=== PATIENT | female | born 1955 | race Caucasian/White ===

== ENCOUNTER → 2019-02-11 | Outpatient (CLI) | payer OTHER ==
[~2019-02-11] MED LIST: ALBUTEROL17 GM; ALDACTAZIDE 251 EAC1; AMLODIPINE BESY10 MG PO; CARVEDILOL12.5 MG PO; CLONIDINE HCL0.2 MG PO; DIOVAN160 MG PO; HYDRALAZINE HCL25 MG PO; NOVOLOG 70100 UNITS/; PLAVIX75 MG PO; PRAVASTATIN SOD40 MG PO; Z.0.ADVAIR 250-501 E; Z.0.AMARYL4 MG PO; Z.0.COREG12.5 MG PO; Z.0.LANTUS100 UNIT/1; Z.0.LASIX20 MG PO; Z.0.LISINOPRIL40 MG; Z.0.NEURONTIN300 MG
--- NOTE | 2019-02-11 16:03 | Diagnostic Imaging Report ---
EXAMINATION: CHEST XRAY LINE PLACEMENT INDICATION: Line placement COMPARISON: None FINDINGS: LINES/TUBES:Right PICC line terminates in the superior vena cava. LUNGS:The lungs are well-inflated. No focal consolidation or pulmonary edema. PLEURA:No pleural effusion or pneumothorax. MEDIASTINUM:The cardiomediastinal silhouette appears normal in size and shape. BONES/SOFT TISSUES:No acute osseous injury. ABDOMEN:No free air under the diaphragm. IMPRESSION: Right PICC line terminates in the superior vena cava. Signed by: Dylon Petit MD on 02/11/2019 3:59 PM
== END ==
LOC: DX 14:39
PROVIDERS: ATTEND Internal Medicine Infectious Disease
DX: M86.071 Acute hematogenous osteomyelitis, right ankle and foot (principal)
CPT/HCPCS: 36569; 71045

== ENCOUNTER → 2019-05-26 | Day surgery (SDC) | payer OTHER ==
[2019-05-20 10:58] LABS: BASOPHILS # (AUTO) 0.1 (0.0-0.1); BASOPHILS % 0.8 % (0.0-1.0); EOSINOPHILS # (AUTO) 0.4 (0.0-0.4); EOSINOPHILS % 4.4 % (0.0-6.0); HEMATOCRIT 44.3 % (34.2-44.1); HEMOGLOBIN 14.1 g/dL (12.0-16.0); LYMPHOCYTES # (AUTO) 2.1 (1.0-3.2); LYMPHOCYTES % 23.8 % (18.0-39.1); MEAN CORPUSCULAR HGB CONC 31.8 g/dL (31-35); MEAN CORPUSCULAR VOLUME 91.2 fL (81-99); MONOCYTES # (AUTO) 0.7 (0.2-0.8); MONOCYTES % 7.2 % (4.4-11.3); NEUTROPHILS # (AUTO) 5.7 (2.1-6.9); NEUTROPHILS % 63.4 % (38.7-80.0); PLATELET COUNT 213 x10e3/uL (140-360); RED BLOOD COUNT 4.86 x10e6/uL (3.6-5.1); RED CELL DISTRIBUTION WIDTH 15.2 % (11.7-14.4)
[2019-05-20 11:15] LABS: ALBUMIN 3.8 g/dL (3.5-5.0); ANION GAP 15.6 mmol/L (8-16); CALCIUM 9.2 mg/dL (8.4-10.2); CREATININE, SERUM 1.9 mg/dL (0.57-1.11); POTASSIUM 4.6 mmol/L (3.5-5.1)
--- NOTE | 2019-05-20 14:43 | NUR ---
Dr. Knott notified of BUN 50, creatinine 1.90, and eGFR 27. No new orders at this time.
[~2019-05-26] VITALS: Ht 167.6 cm; Wt 127.0 kg
[2019-05-26] VITALS (13 sets, daily range): BP systolic 111–160; BP diastolic 66–86
[~2019-05-26] MED LIST changes: +ALPRAZOLAM 0.5 MG TAB ONE; +ASPIR 8181 MG PO; +ASPIRIN 325 MG TAB ONE; +BIVALRIUDIN 250 MG/VIAL VIAL IV ONE; +CIPRO500 MG PO; +DIPHENHYDRAMINE HCL 25 MG CAP ONE; +FENTANYL CITRATE/PF 100MCG/2 ML INJ ONE; +FLUCONAZOLE100 MG PO; +HEPARIN SOD/SOD CHLORIDE 2,000 ML ONE; +IOPAMIDOL 300MG/ML 100 ML INFUS..BTL IV ONE; +LEVEMIR100 UNIT/1 SC; +LIDOCAINE HCL 2% LOCAL 20 ML VIAL ONE; +LISINOPRIL10 MG PO; +MIDAZOLAM HCL 2 MG/2 ML VIAL ONE; +NOVOLOG100 UNITS1 SC; +PRASUGREL 10 MG TAB ONE; +SODIUM CHLORIDE 0.9% 1000ML 1,000 ML ONE; +SODIUM CHLORIDE 0.9% 50ML 50 ML ONE; +VERAPAMIL HCL 2.5 MG/ML 2 ML VIAL ONE
--- OUTSIDE RECORDS SUMMARY | 2019-05-26 11:47 | XMS REPORT ---
Author Author [facility] Address Unknown Phone Unavailable Care Team Providers Care Instrument And Electrical Technician Name Role Phone ZORA CORRALES Unavailable Unavailable Problems This patient has no known problems. Allergies, Adverse Reactions, Alerts This patient has no known allergies or adverse reactions. Medications This patient has no known medications. Results Test Description Test Time Test Comments Text Results Atomic Results Result Comments CHEST XRAY LINE PLACEMENT 2019-02-11 15:58:00 [place] [address] Patient Name: EDIL PRIDE MR #: [id number] : 1955 Age/Sex: 63/F Req #: [id number] Adm Physician: Ordered by: ZORA CORRALES MD Report #: [id number] Location: DX Room/Bed: Procedure: [id number] DX/CHEST XRAY LINE PLACEMENT Exam Date: Exam Time: REPORT STATUS: Signed EXAMINATION: CHEST XRAY LINE PLACEMENT INDICATION: L ine placement COMPARISON: None FINDINGS: LINES/TUBES:Right PICC line terminates in the superior vena cava. LUNGS:The lungs are well- inflated. No focal consolidation or pulmonary edema. PLEURA:No pleural effusion or pneumothorax. MEDIASTINUM:The cardiomediastinal silhouette appears normal in size and shape. BONES/SOFT TISSUES:No acute osseous injury. ABDOMEN:No free air under the diaphragm. IMPRESSION: Right PICC line terminates in the superior vena cava. Signed by: Jaylin Petit MD on 02/11/2019 3:59 PM Dictated By: JAYLIN EPTIT MD [id number] Transcribed By: CHAD on 02/11/19 3339 COPY TO: ZORA CORRALES MD
--- NOTE | 2019-05-26 16:30 | NUR ---
5010p Received pt to room #9, Identifier x2. Bedside report received from [address] L[address]. Alert oriented and appropriate, PERRLA, respirations even and unlabored to room air. Pulses x4 extremities equal and strong. Pedal pulses PT/DP X4.Cap fill brisk < 3 sec. No periperal fix and LHc Lad fix x1 stent.ok to dc at 9pm. Skin warm and dry integrity appears. IV 20g to left hand. Presents healthy w/o s/s of infiltration or complaint. Abdomen soft and supple. pt offered toileting, denies need to urinate or defecate. No personal affects with patient. Family at bedside. Currently w/o complaint of pain or need. ds/milton
--- NOTE | 2019-05-26 18:20 | NUR ---
1820p RADIAL Compression removal: Initial Cuff volume -13cc 1820p -3 cc Removed No hematoma/bleeding noted with normal neurovascular function. 1830 -5cc Removed No hematoma/ bleeding noted with normal neurovascular function. 1845 -5cc Removed No hematoma/bleeding noted with normal neurovascular function. Air removal completed. Stasis achieved sterile 2x2,Tegaderm, Coban dressing No hematoma, bleeding noted with normal neurovascular function. Wrist splint in place. Pt instructed on POC. Ds/Rn
--- NOTE | 2019-05-26 20:58 | NUR ---
Pt meets DC criteria.Rt Tr band site assessed for s/s of complication and presence of hematoma. Sklin warm, dry, no discolor, and pulses present. IV removed from left hand. Distal tip appears intact. VS WNL. Pt denies pain, sob, or need at this time. Family at bedside. Review of discharge paperwork and follow up instructions. verbalized understanding. Pt to wheelchair and transported to front of hospital. Transferred to private vehicle under own strength w/o incident with DC paperwork in hand. ds/rn
--- NOTE | 2019-05-26 22:19 | Operative Report ---
DATE OF PROCEDURE: 05/26/2019 SURGEON: Kvng Knott MD CARDIAC CLOTH SHEARER PROCEDURE. INDICATIONS: 1. Coronary artery disease, abnormal stress test, unstable angina. 2. Peripheral arterial disease with claudication ulceration. 3. Deployment of right wrist TR band. 4. Ultrasound guided access into the right radial artery including image storage permanently. 5. 65 minutes of conscious sedation, which was monitored physiologically and hemodynamically by me as well as the finishing lab technician nurse. COMPLICATIONS: None. RECOMMENDATIONS: Dual antiplatelet therapy for at least 6 months, staged intervention for peripheral arterial disease as indicated. DESCRIPTION OF PROCEDURE: Access obtained in the right radial artery using ultrasound guidance. A 5-Latvian sheath was placed. Coronary angiography demonstrated patent left main, left anterior descending artery approximately mild disease, mid left anterior descending artery 70% stenosis. Right coronary artery diffuse 20% stenosis. LV end-diastolic pressure of 14, no gradient across the aortic valve pullback. Abdominal aortogram demonstrated widely patent abdominal aorta and iliacs bilaterally. The catheter was advanced to bilateral common femoral artery 50% stenosis in the left femoral artery, bilateral anterior tibial artery is occluded two-vessel runoff. A decision was made to intervene on the left anterior descending artery. The patient received intravenous Angiomax and oral Effient and aspirin for anticoagulation. The left main was cannulated using an XB3.5, 6-Latvian guiding catheter. Short whisper wire was advanced across the lesion. Primary stent 2.75 x 16 mm synergy stent deployed at 22 atmospheres. Excellent end result, less than 10% residual stenosis TRENT-3 flow. No complications. Wire and guide sheath removed. TR band applied. The patient discharged home. MD KAREN Chavez/MODL /[id number]
== END | disposition home or self-care (01) ==
LOC: CATH LAB 11:36
PROVIDERS: ATTEND Internal Medicine Interventional Cardiology
DX: I25.110 Atherosclerotic heart disease of native coronary artery with unstable angina pectoris (principal); R94.39 Abnormal result of other cardiovascular function study; I70.249 Atherosclerosis of native arteries of left leg with ulceration of unspecified site; I70.239 Atherosclerosis of native arteries of right leg with ulceration of unspecified site; I10 Essential (primary) hypertension; E11.9 Type 2 diabetes mellitus without complications; Z88.1 Allergy status to other antibiotic agents; Z01.812 Encounter for preprocedural laboratory examination; Z79.84 Long term (current) use of oral hypoglycemic drugs; Z79.02 Long term (current) use of antithrombotics/antiplatelets; Z79.82 Long term (current) use of aspirin; Z79.4 Long term (current) use of insulin; Z68.42 Body mass index [BMI] 45.0-49.9, adult
CPT/HCPCS: 36247; 36252; 36415; 76937; 80053; 85025; 92928; 93458; C1769 ×4; C1874; C1887 ×2; J0583; J2001; J2250; J3010; J7030; Q9967; 75625; 75716; 99152; 99153

== ENCOUNTER → 2019-07-17 | Outpatient (CLI) | payer OTHER ==
[~2019-07-17] MED LIST changes: -ALPRAZOLAM 0.5 MG TAB ONE; -ASPIRIN 325 MG TAB ONE; -BIVALRIUDIN 250 MG/VIAL VIAL IV ONE; -DIPHENHYDRAMINE HCL 25 MG CAP ONE; -FENTANYL CITRATE/PF 100MCG/2 ML INJ ONE; -HEPARIN SOD/SOD CHLORIDE 2,000 ML ONE; -IOPAMIDOL 300MG/ML 100 ML INFUS..BTL IV ONE; -LIDOCAINE HCL 2% LOCAL 20 ML VIAL ONE; -MIDAZOLAM HCL 2 MG/2 ML VIAL ONE; -PRASUGREL 10 MG TAB ONE; -SODIUM CHLORIDE 0.9% 1000ML 1,000 ML ONE; -SODIUM CHLORIDE 0.9% 50ML 50 ML ONE; -VERAPAMIL HCL 2.5 MG/ML 2 ML VIAL ONE
--- NOTE | 2019-07-17 16:48 | Diagnostic Imaging Report ---
MRI of the right foot without contrast. History: Foot pain. Osteomyelitis. Diabetic ulcer at the fifth toe. Infection. Decreased range of motion. Technique: Multiplanar multisequence MRI of the foot without contrast Comparison: 01/17/2011 Findings: Abnormal soft tissue edema with skin thickening and apparent skin ulceration at the dorsal aspect of the fifth toe. There is underlying bone marrow edema in the fifth toe as seen on sagittal image 27 and 28 as well as series 5 image 12 through 15. This is worrisome for osteomyelitis. No adjacent well-formed drainable fluid collection/abscess is seen. Scattered degenerative change about the remaining visualized osseous structures. No acute fracture, dislocation or evidence of avascular necrosis. No ligamentous or tendon tear. Diffuse muscle atrophy. The visualized neurovascular bundles are intact. Soft tissue edema most pronounced dorsally best seen on series 2 image 3 could be due to cellulitis. Impression: Abnormal soft tissue edema with skin thickening and apparent skin ulceration at the dorsal aspect of the fifth toe. There is underlying bone marrow edema in the fifth toe worrisome for osteomyelitis. No adjacent well-formed drainable fluid collection/abscess is seen. Soft tissue edema most pronounced dorsally about the foot could be due to cellulitis. Signed by: Dr. Christian Lan M.D. on 07/17/2019 4:45 PM
== END ==
LOC: MRI 11:37
PROVIDERS: ATTEND Podiatrist Foot & Ankle Surgery
DX: M86.071 Acute hematogenous osteomyelitis, right ankle and foot (principal)

== ENCOUNTER → 2019-08-10 | Outpatient (CLI) | payer OTHER ==
[2019-08-10 15:03] LABS: BASOPHILS # (AUTO) 0.1 (0.0-0.1); BASOPHILS % 0.4 % (0.0-1.0); EOSINOPHILS # (AUTO) 0.7 (0.0-0.4); EOSINOPHILS % 5.8 % (0.0-6.0); HEMATOCRIT 40.7 % (34.2-44.1); HEMOGLOBIN 13.2 g/dL (12.0-16.0); LYMPHOCYTES # (AUTO) 2.1 (1.0-3.2); MEAN CORPUSCULAR HEMOGLOBIN 28.8 pg (28-32); MEAN CORPUSCULAR HGB CONC 32.4 g/dL (31-35); MEAN CORPUSCULAR VOLUME 88.7 fL (81-99); MONOCYTES # (AUTO) 0.7 (0.2-0.8); MONOCYTES % 5.8 % (4.4-11.3); NEUTROPHILS # (AUTO) 7.7 (2.1-6.9); NEUTROPHILS % 68.6 % (38.7-80.0); PLATELET COUNT 207 x10e3/uL (140-360); RED BLOOD COUNT 4.59 x10e6/uL (3.6-5.1); RED CELL DISTRIBUTION WIDTH 14.5 % (11.7-14.4)
== END ==
LOC: DX 13:36 → EDSTATUS 08-13 06:30
PROVIDERS: ATTEND Podiatrist Foot & Ankle Surgery
DX: Z01.818 Encounter for other preprocedural examination (principal); M86.071 Acute hematogenous osteomyelitis, right ankle and foot; Z11.59 Encounter for screening for other viral diseases
CPT/HCPCS: 36415; 85025; 87635; 93005

== ENCOUNTER → 2020-01-06 | Day surgery (SDC) | payer OTHER ==
--- NOTE | 2020-01-01 10:30 | Diagnostic Imaging Report ---
EXAMINATION: CHEST 2 VIEWS INDICATION: Pre-operative COMPARISON: Chest radiograph 02/11/2019 FINDINGS: LINES/TUBES:None LUNGS:The lungs are well-inflated. No focal consolidation or pulmonary edema. PLEURA:No pleural effusion or pneumothorax. MEDIASTINUM:The cardiomediastinal silhouette appears normal in size and shape. BONES/SOFT TISSUES:No acute osseous injury. ABDOMEN:No free air under the diaphragm. IMPRESSION: No focal pneumonia or pulmonary edema. Signed by: Dylon Petit MD on 01/01/2020 10:26 AM
[2020-01-01 10:32] LABS: BASOPHILS # (AUTO) 0.1 (0.0-0.1); BASOPHILS % 0.5 % (0.0-1.0); EOSINOPHILS # (AUTO) 0.5 (0.0-0.4); EOSINOPHILS % 5.8 % (0.0-6.0); HEMATOCRIT 44.1 % (34.2-44.1); HEMOGLOBIN 14.1 g/dL (12.0-16.0); LYMPHOCYTES # (AUTO) 2.3 (1.0-3.2); MEAN CORPUSCULAR HEMOGLOBIN 29.2 pg (28-32); MEAN CORPUSCULAR VOLUME 91.3 fL (81-99); MONOCYTES # (AUTO) 0.5 (0.2-0.8); MONOCYTES % 5.3 % (4.4-11.3); NEUTROPHILS # (AUTO) 5.9 (2.1-6.9); PLATELET COUNT 205 x10e3/uL (140-360); RED BLOOD COUNT 4.83 x10e6/uL (3.6-5.1); RED CELL DISTRIBUTION WIDTH 15.5 % (11.7-14.4)
[2020-01-01 10:53] LABS: ANION GAP 13.2 mmol/L (8-16); CALCIUM 8.6 mg/dL (8.4-10.2); CREATININE, SERUM 1.88 mg/dL (0.57-1.11); POTASSIUM 4.2 mmol/L (3.5-5.1)
[~2020-01-06] MED LIST changes: +ATORVASTATIN CA20 MG PO; +BUPIVACAINE HCL 0.5% INJ 30 ML VIAL INJ ONE; +CEFAZOLIN SOD 1 GM/NS 50ML 50 ML IV ONE; +CLARITIN-D 241 EACH PO; +COLCRYS0.6 MG PO; +DEXAMETHASONE SOD PHOS INJ 4 MG/ML VIAL ONE; +DOXYCYCLINE HY100 MG PO; +FENTANYL CITRATE/PF 100MCG/2 ML INJ ONE; +LABETALOL HCL 5 MG/ML 20ML VIAL ONE; +MIDAZOLAM HCL 2 MG/2 ML VIAL ONE
[2020-01-06 08:30] VITALS: BP 142/86
--- NOTE | 2020-01-06 09:28 | Operative Report ---
DATE OF PROCEDURE: 01/06/2020 SURGEON: Melissa Marr DPM PREOPERATIVE DIAGNOSIS: Right 5th digit osteomyelitis. POSTOPERATIVE DIAGNOSIS: Right 5th digit osteomyelitis. PLANNED PROCEDURE: Right partial 5th ray amputation. WHEEL PRESS CLERK: Melissa Marr DPM. ANESTHESIA: General with a postoperative block consisting of 10 mL of 0.5% Marcaine plain. HEMOSTASIS: Esmarch tourniquet applied for approximately 15 minutes. MATERIALS: 4-0 nylon. ESTIMATED BLOOD LOSS: Less than 10 mL. PATHOLOGY: Right 5th digit sent for gross specimen. PROCEDURE NOTE: The patient was seen in the preoperative waiting room. The correct procedure and site were identified. The patient was brought to the operating room and placed on the operative table in a supine position. IV sedation was initiated this time followed by a ring block to the right 5th metatarsal. The right foot, ankle and leg was scrubbed, prepped, and draped in the usual aseptic manner. The right foot, ankle and leg was exsanguinated with an Esmarch bandage and an Esmarch tourniquet was applied for approximately 20 minutes. Attention was directed to the distal aspect of the patient's right foot, where a deep probing ulceration was noted to the proximal interphalangeal joint of the right 5th digit. The decision made to proceed with a partial 5th ray amputation. Utilizing a #15 blade, a linear incision was made over the distal aspect of the right 5th metatarsal with two converging semi-elliptical incisions over the metatarsophalangeal joint. The digit was grasped with a towel clamp and disarticulated utilizing a #15 blade at the level of the metatarsophalangeal joint. The wound was then debrided of all necrotic and devitalized tissue. Next, utilizing a sagittal saw, the 5th metatarsal head resection was performed and was sent for gross specimen. The remainder of the wound was debrided again of all necrotic and devitalized tissue. The wound was copiously irrigated with sterile saline. Next, the wound was prepped for closure by removing all dog-ears and debulking fat. The incision site was reapproximated utilizing simple interrupted sutures with 4-0 nylon. The incision site was then dressed with Adaptic, 4x4s, Kerlix, Carlos wrap, and a postop shoe. The patient tolerated the procedure and anesthesia well. The patient was transferred to the postoperative recovery room with vital signs stable and vascular status intact. The patient is monitored there for a short period time before being sent home with the following written and oral instructions. 1. Keep the dressing clean, dry, intact. 2. The patient is to remain partial weightbearing to the right foot and to avoid excessive ambulation until being seen in the office. 3. The patient was given office number should contact us if any problems arise. Dictated by Melissa Marr DPM S ROBER Dc (Charley)/MODL /[id number]
== END | disposition home or self-care (01) ==
LOC: OR 05:05
PROVIDERS: ATTEND Podiatrist Foot & Ankle Surgery
DX: M86.571 Other chronic hematogenous osteomyelitis, right ankle and foot (principal); E11.9 Type 2 diabetes mellitus without complications; I10 Essential (primary) hypertension; E11.22 Type 2 diabetes mellitus with diabetic chronic kidney disease; I13.0 Hypertensive heart and chronic kidney disease with heart failure and stage 1 through stage 4 chronic kidney disease, or unspecified chronic kidney disease; N18.9 Chronic kidney disease, unspecified; I50.9 Heart failure, unspecified; Z88.2 Allergy status to sulfonamides; Z88.1 Allergy status to other antibiotic agents; Z91.040 Latex allergy status; Z01.810 Encounter for preprocedural cardiovascular examination; Z01.812 Encounter for preprocedural laboratory examination; Z01.818 Encounter for other preprocedural examination; Z11.59 Encounter for screening for other viral diseases; Z98.61 Coronary angioplasty status; Z79.84 Long term (current) use of oral hypoglycemic drugs; Z79.4 Long term (current) use of insulin; Z79.02 Long term (current) use of antithrombotics/antiplatelets
CPT/HCPCS: 28810; 36415 ×2; 71046; 80048; 82948; 85025; 88305; 88311; 93005; J0690; J2250; J3010; J3490; U0002; 88302; J1100

== ENCOUNTER 2020-02-21 12:31 | Inpatient (IN) | payer OTHER ==
[2020-02-20 20:00] VITALS: BP 114/52
[~2020-02-21] VITALS: Ht 162.6 cm; Wt 127.0 kg
[~2020-02-21 12:31] MED LIST changes: -BUPIVACAINE HCL 0.5% INJ 30 ML VIAL INJ ONE; -CEFAZOLIN SOD 1 GM/NS 50ML 50 ML IV ONE; -DEXAMETHASONE SOD PHOS INJ 4 MG/ML VIAL ONE; -FENTANYL CITRATE/PF 100MCG/2 ML INJ ONE; -LABETALOL HCL 5 MG/ML 20ML VIAL ONE; -MIDAZOLAM HCL 2 MG/2 ML VIAL ONE
--- OUTSIDE RECORDS SUMMARY | 2020-02-21 12:38 | XMS REPORT | Clinical Summary ---
Author Author [facility] Address Unknown Phone Unavailable Care Team Providers Care Mobile Pet Groomer Name Role Phone Leon Massey PA-C, Abhilash Nolen PCP [phone] Allergies No Known Active Allergies Medications End Date Status Medication Sig Dispensed Refills Start Date Active chlorhexidine (HIBICLENS) Full body 600 mL 0 4 % external liquid shower to 7 decrease MRSA on body Active Problems Not on file Surgical History Surgery Date Site/Laterality Comments STENT Femoral BRAIN SURGERY Medical History Medical History Date Comments Hypertension Diabetes mellitus (HCC) CHF (congestive heart failure) (HCC) Blindness left eye Social History Date Tobacco Use Types Packs/Day Years Used Never Smoker Smokeless Tobacco: Never Used Drinks/Week oz/Week Comments Alcohol Use No Sex Assigned at Date Recorded Not on file Last Filed Vital Signs Not on file Plan of Treatment Not on file Results Not on fileafter 02/20/2019 Insurance Type Payer Benefit Subscriber ID Effective Phone Address Plan / Dates Group HMO/PPO [facility] [id number] 2016-P THCARE resent CHOICE/CHO ICE [phone] Advance Directives For more information, please contact: [phone] Patient Echo Technician Explanation Type Date Recorded Advance Directives, 09/09/2016 6:40 PM Living Will and Medical Power of Director Process Improvement
--- OUTSIDE RECORDS SUMMARY | 2020-02-21 12:38 | XMS REPORT | Continuity of Care Document ---
Author Author [facility] t Organization [facility] Address [address] [place] [address] Dr. Allen [address] [place] [address] Phone Unavailable Care Team Providers Care Mirror Fabrication Supervisor Name Role Phone Leon Massey PA-C, Callum Hung PCP [phone] Mani JO Attphys Unavailable BOYDAlistair MOHAMMED Attphys Unavailable SHEBIZORA Mcgregor Attphys Unavailable Problems This patient has no known problems. Allergies, Adverse Reactions, Alerts This patient has no known allergies or adverse reactions. Social History Social Habit Start Date Stop Date Quantity Comments Source Sex Assigned At [facility] [employer] Tobacco use and exposure 2016-09-09 00:00:00 2016-09-09 00:00:00 Vianneymalena kaminski used [employer] Alcohol intake 2016-09-09 00:00:00 2016-09-09 00:00:00 Current non-drinker of alcohol (finding) [employer] Smoking Status Start Date Stop Date Source Never smoker [place] [facility] Medications Ordered Medication Name Filled Medication Name Start Date Stop Da te Current Medication? Ordering Clinician Indication Dosage Frequency Signature (SIG) Comments Components Source chlorhexidine (HIBICLENS) 4 % external liquid 2016-09-09 00:00:0 0 Yes Full body shower to decrease MRSA on body Kayden Wood Procedures This patient has no known procedures. Results Test Description Test Time Test Comments Results Result Comments Source CHEST 2 VIEWS 2020-01-01 10:26:00 [facility] [address] [place], [place] [address] Patient Name: EDIL ZURITA MR #: [id number] : 1955 Age/Sex: 64/F Req #: [id number] Adm Physician: Ordered by: Teo JO DPM Report #: [id number] Location: OR Room/Bed: Procedure: [id number] DX/CHEST 2 VIEWS Exam Date: 01/01/20 Exam Time: 1007 REPORT STATUS: Signed EXAMINATION: CHEST 2 VIEWS INDICATION: Pre-operative COMPARISON: Chest radiograph 02/11/2019 FINDINGS: LINES/TUBES:None LUNGS:The lungs are well-inflated. No focal consolidation or pulmonary edema. PLEURA:No pleural effusion or pneu mothorax. MEDIASTINUM:The cardiomediastinal silhouette appears normal in size and shape. BONES/SOFT TISSUES:No acute osseous injury. ABDOMEN:No free air under the diaphragm. IMPRESSION: No focal pneumonia or pulmonary edema. Signed by: Jaylin Farnsworth MD on 01/01/2020 10:26 AM Dictated By: JAYLIN FARNSWORTH MD 1026 Transcribed By: CHAD on 01/01/20 1026 COPY TO: Teo JO DPM MRI FOOT RIGHT WO 2019-07-17 16:40:00 [place] [address] Patient Name: EDIL ZURITA MR #: [id number] : 1955 Age/Sex: 63/F Req #: [id number] Adm Physician: Ordered by: RUTH NIX DPM Report #: [id number] Location: MRI Room/Bed: Procedure: [id number] MRI/MRI FOOT RIGHT WO Exam Date: Exam Time: REPORT STATUS: Signed MRI of the right foot without contrast. History: Foot pain. Osteomyelitis. Diabetic ulcer at the fifth toe. Infection. Decreased range of motion. Technique: Multiplanar multisequence MRI of the foot without contrast Comparison: 01/17/2011 Findings: Abnormal soft tissue edema with skin thickening and apparent skin ulceration at the dorsal aspect of the fifth toe. There is underlying bone marrow edema in the fifth toe as seen on sagittal image 27 and 28 as well as series 5 image 12 through 15. This is worrisome for osteomyelitis. No adjacent well-formed drainable fluid collection/abscess is seen. Scattered degenerative change about the remaining visualized osseous structures. No acute fracture, dislocation or evidence of avascular necrosis. No ligamentous or tendon tear. Diffuse muscle atrophy. The visualized neurovascular bundles are intact. Soft tissue edema most pronounced dorsally best seen on series 2 image 3 could be due to cellulitis. Impression: Abnormal soft tissue edema with skin thickening and apparent skin ulceration at the dorsal aspect of the fifth toe. There is underlying bone marrow edema in the fifth toe worrisome for osteomyelitis. No adjacent well-formed drainable fluid collection/abscess is seen. Soft tissue edema most pronounced dorsally about the foot could be due to cellulitis. Signed by: Dr. Jimmie Hernandez M.D. on 07/17/2019 4:45 PM Dictated By: JIMMIE HERNANDEZ MD, MD Transcribed By: CHAD on 07/17/191644 COPY TO: RUTH NIX DPM CHEST XRAY LINE PLACEMENT 2019-02-11 15:58:00 [place] [address] Patient Name: EDIL ZURITA MR #: [id number] : 1955 Age/Sex: 63/F Req #: [id number] [facility] Physician: Ordered by: ZORA CORRALES MD Report #: [id number] Location: DX Room/Bed: Procedure: [id number] DX/CHEST XRAY LINE PLACEMENT Exam Date: Exam Time: REPORT STATUS: Signed EXAMINATION: CHEST XRAY LINE PLACEMENT INDICATION: Line placement COMPARISON: None FINDINGS: LINES/TUBES:Right PICC line terminates in the superior vena cava. LUNGS:The lungs are well-inflated. No focal consolidation or pulmonary edema. PLEURA:No pleural effusion or pneumothorax. MEDIASTINUM:The cardiomediastinal silhouette appears normal in size and shape. BONES/SOFT TISSUES:No acute osseous injury. ABDOMEN:No free air under the diaphragm. IMPRESSION: Right PICC line terminates in the superior vena cava. Signed by: Jaylin Farnsworth MD on 02/11/2019 3:59 PM Dictated By: JAYLIN FARNSWORTH MD 58 Transcribed By: CHAD on 02/11/191558 COPY TO: ZORA CORRALES MD
[2020-02-21] MEDS ORDERED: HYDROCODONE/APAP 7.5MG-325MG 1 EA TAB PO NR (13:15)
[2020-02-21 14:06] LABS: BASOPHILS # (AUTO) 0.1 (0.0-0.1); BASOPHILS % 0.4 % (0.0-1.0); EOSINOPHILS # (AUTO) 0.1 (0.0-0.4); EOSINOPHILS % 0.5 % (0.0-6.0); HEMOGLOBIN 13.4 g/dL (12.0-16.0); LYMPHOCYTES # (AUTO) 1.4 (1.0-3.2); LYMPHOCYTES % 7.1 % (18.0-39.1); MEAN CORPUSCULAR HGB CONC 31.2 g/dL (31-35); MEAN CORPUSCULAR VOLUME 93.1 fL (81-99); MONOCYTES # (AUTO) 0.7 (0.2-0.8); MONOCYTES % 3.7 % (4.4-11.3); NEUTROPHILS # (AUTO) 16.7 (2.1-6.9); NEUTROPHILS % 87.7 % (38.7-80.0); PLATELET COUNT 361 x10e3/uL (140-360); RED BLOOD COUNT 4.62 x10e6/uL (3.6-5.1); RED CELL DISTRIBUTION WIDTH 15.1 % (11.7-14.4)
--- NOTE | 2020-02-21 14:16 | Diagnostic Imaging Report ---
X-ray : 3 views of the left foot. HISTORY: Pain. COMPARISON: None available. FINDINGS: Bone/joints: The bones are diffusely demineralized. No acute fracture or dislocation identified. Os peroneum. Enthesopathic changes at the insertion of the Achilles tendon on the calcaneus. Soft tissues: No focal abnormality. IMPRESSION: No acute radiographic abnormality. Signed by: Thuan De Guzman MD on 02/21/2020 2:12 PM
[2020-02-21 14:20] LABS: INR 1.12
[2020-02-21 14:21] LABS: PARTIAL THROMBOPLASTIN TIME 37.1 seconds (23.8-35.5)
[2020-02-21 14:30] LABS: ALBUMIN 3.2 g/dL (3.5-5.0); ALBUMIN/GLOBULIN RATIO 0.7 (0.8-2.0); ANION GAP 18.9 mmol/L (8-16); CALCIUM 9.4 mg/dL (8.4-10.2); CREATININE, SERUM 2.22 mg/dL (0.57-1.11); MAGNESIUM 2.3 MG/DL (1.3-2.1); POTASSIUM 4.9 mmol/L (3.5-5.1)
[2020-02-21 14:37] LABS: CREATINE KINASE MB 0.9 ng/mL (0-5.0)
[2020-02-21] MEDS ORDERED: CLINDAMYCIN PHOS 900MG/ 50ML 50 ML IV ONE (15:30)
[2020-02-21] MEDS ORDERED: PIPERACILLIN/TAZO 2.25 GM 50 ML IV ONE (15:30)
[2020-02-21] MEDS ORDERED: DEXTROSE 50% SYRINGE 50 ML IV PRN (16:00)
--- OUTSIDE RECORDS SUMMARY | 2020-02-21 16:16 | XMS REPORT | Clinical Summary ---
Author Author [facility] Organization [facility] Address Unknown Phone Unavailable Care Team Providers Care Christian Education Director Name Role Phone Leon Massey PA-C, Abhilash Nolen PCP [phone] Allergies No Known Active Allergies Medications End [...] Phone Address Plan / Dates Group HMO/PPO [facility] [id number] 2016-P THCARE resent CHOICE/CHO ICE [phone] Advance Directives For more information, please contact: [phone] Patient Associate Professor Of Physics Explanation Type Date Recorded Advance Directives, 09/09/2016 6:40 PM Living Will and Medical Power of Primary Special Education Teacher
--- OUTSIDE RECORDS SUMMARY | 2020-02-21 16:16 | XMS REPORT | Continuity of Care Document ---
Author Author [facility] t Organization [facility] Address [address] [place] [address] Dr. Allen [address] [place] [address] Phone Unavailable Care Team Providers Care Bowling Ball Engraver Name Role Phone Leon Massey PA-C, Callum Hung PCP [phone] Alistair PAULINO Attphys Unavailable Mani JO Attphys Unavailable BOYD, A MOHSONIA Attphys Unavailable ZORA CORRALES Attphys Unavailable Problems This patient has no known problems. Allergies, Adverse Reactions, Alerts This patient has no known allergies or adverse reactions. Social History Social Habit Start Date Stop Date Quantity Comments Source Sex Assigned At [facility] Tobacco use and exposure 2016-09-09 00:00:00 2016-09-09 00:00:00 Vianneymalena kaminski used [facility] Alcohol intake 2016-09-09 00:00:00 2016-09-09 00:00:00 Current non-drinker of alcohol (finding) [facility] Smoking Status Start Date Stop Date Source Never smoker Monique Muriel Medications Ordered Medication Name Filled Medication Name Start Date Stop Da te Current Medication? Ordering Clinician Indication Dosage Frequency Signature (SIG) Comments Components Source chlorhexidine (HIBICLENS) 4 % external liquid 2016-09-09 00:00:0 0 Yes Full body shower to decrease MRSA on body Kayden Wood Procedures This patient has no known procedures. Results Test Description Test Time Test Comments Results Result Comments Source FOOT LEFT COMPLETE 2020-02-21 14:10:[address] [facility] 1955 Sex: F [place] [address] Patient Name: EDIL ZURITA MR #: [id number] : 1955 Age/Sex: 64/F Req #: [id number] Adm Physician: Ordered by: SHARLENE PAULINO MD Report #: [id number] Location: ER Room/Bed: Procedure: [id number] DX/FOOT LEFT COMPLETE Exam Date: 02/21/20 Exam Time: 1323 REPORT STATUS: Signed X-ray : 3 views of the left foot. HISTORY: Pain. COMPARISON: None available. FINDINGS: Bone/joints: The bones are diffusely demineralized. No acute fracture or dislocation identified. Os peroneum. Enthesopathic changes at the insertion of the Achilles tendon on the calcaneus. Soft tissues: No focal abnormality. IMPRESSION: No acute radiographic abnormality. Signed by: Thania Whitaker MD on 02/21/2020 2:12 PM Dictated By: THANIA WHITAKER MD 11 Transcribed By: CHAD on 02/21/201411 COPY TO: SHARLENE PAULINO MD CHEST 2 VIEWS 2020-01-01 10:26:[address], [place], [place] [address] Patient Name: EDIL ZURITA MR #: [id number] : 1955 Age/Sex: 64/F Req #: [id number] Adm Physician: Ordered by: Teo JO DPM Report #: [id number] Location: OR Room/Bed: Procedure: [id number] DX/CHEST 2 VIEWS Exam Date: 01/01/20 Exam [...] DPM MRI FOOT RIGHT WO 2019-07-17 16:40:00 [place] [address] Patient Name: EDIL ZURITA MR #: [id number] : 1955 Age/Sex: 63/F Req #: [id number] Adm Physician: Ordered by: RUTH NIX DPM Report #: [id number] Location: MRI Room/Bed: Procedure: [id number] MRI/MRI FOOT RIGHT WO Exam Date: Exam [...] due to cellulitis. Signed by: Dr. Jimmie Lan M.D. on 07/17/2019 4:45 PM Dictated By: JIMMIE LAN MD, MD 44 Transcribed By: CHAD on 07/17/191644 COPY TO: RUTH NIX DPM CHEST XRAY LINE PLACEMENT 2019-02-11 15:58:00 [address], [place] [address] Patient Name: EDIL ZURITA MR #: [id number] : 1955 Age/Sex: 63/F Req #: [id number] [facility] Physician: Ordered by: ZORA CORRALES MD Report #: [id number] Location: DX Room/Bed: Procedure: [id number] DX/CHEST XRAY LINE PLACEMENT Exam Date: Exam [...] 3:59 PM Dictated By: JAYLIN FARNSWORTH MD 1389 Transcribed By: CHAD on 02/11/19 3732 COPY TO: ZORA CORRALES MD
[2020-02-21] MEDS: INSULIN LISPRO 100 UNIT/1 ML 3ML VIAL SQ SCH ×2 (16:24→21:22)
[2020-02-21] MEDS: MORPHINE SULFATE INJ 4 MG/ML INJ 1ML IV PRN ×2 (16:24→22:05)
[2020-02-21] MEDS: ONDANSETRON HCL INJ 2MG/ML 2ML 2 MG/ML VIAL IV PRN (16:24)
--- NOTE | 2020-02-21 16:36 | Emergency Department Note ---
History of Present Illnes History of Present Illness Chief Complaint: Extremity Trauma/Pain History of Present Illness This is a 64 year old female pt came in via [facility] for bilateral foot pain, pt had an amputation of her right 5th toe 2 weeks ago, denies any recent fall or trauma, pt states that her pain just started while she was sitting down, redness noted to the surgical site, site is warm to touch. Historian: Patient Arrival Mode: [facility] Onset (how long ago): day(s) Location: BILATERAL FEET Quality: PAIN Radiation: Reports non-radiation Severity: severe Onset quality: gradual Timing of current episode: constant Progression: unchanged Chronicity: recurrent Context: Reports recent surgery; Denies recent illness Relieving factors: none Exacerbating factors: none Associated symptoms: Reports denies other symptoms Past Medical/Family History Physician Review I have reviewed the patient's past medical and family history. Any updates have been documented here. Past Medical History Recent Fever: No Clinical Suspicion of Infectio: No New/Unexplained Change in Ment: No Past Medical History: Hypertension, Diabetes Other Medical History: Gout CHOLESTEROL Other Surgery: BRAIN TUMOR LEFT LEG RIGHT LEG Right 5th Toe Amputation Social History Smoking Cessation: Never Smoker Counseling Performed: No Alcohol Use: None Any Illegal Drug Use: No TB Exposure/Symptoms: No Physically hurt or threatened: No Family History Family history of heart diseas: No Other Any Pre-Existing Lines (PICC,: No Review of Systems Review of Systems Constitutional: Reports no symptoms EENTM: Reports no symptoms Cardiovascular: Reports no symptoms Respiratory: Reports no symptoms Gastrointestinal: Reports no symptoms Genitourinary: Reports no symptoms Musculoskeletal: Reports as per HPI Integumentary: Reports no symptoms Neurological: Reports no symptoms Psychological: Reports no symptoms Endocrine: Reports no symptoms Hematological/Lymphatic: Reports no symptoms Physical Exam Related Data Allergies: Coded Allergies: latex (Verified Allergy, Unknown, ITCHING, 05/20/19) sulfamethoxazole (Verified Allergy, Unknown, HIVES, 05/20/19) trimethoprim (Verified Allergy, Unknown, HIVES, 05/20/19) Triage Vital Signs Vital Signs Date Time Temp Pulse Resp B/P (MAP) Pulse Ox O2 Delivery O2 Flow Rate FiO2 02/21/20 12:41 98.9 97 18 152/77 100 Room Air Vital signs reviewed: Yes Physical Exam CONSTITUTIONAL Constitutional: Present well-developed, Present well-nourished HENT HENT: Present normocephalic, Present atraumatic, Present oropharynx clear/moist, Present nose normal HENT L/R: Present left ext ear normal, Present right ext ear normal EYES Eyes: Reports PERRL, Reports conjunctivae normal NECK Neck: Present ROM normal PULMONARY Pulmonary: Present effort normal, Present breath sounds normal CARDIOVASCULAR Cardiovascular: Present regular rhythm, Present heart sounds normal, Present capillary refill normal, Present normal rate GASTROINTESTINAL Abdominal: Present soft, Present nontender, Present bowel sounds normal GENITOURINARY Genitourinary: Present exam deferred SKIN Skin: Present warm, Present dry, Present other (RIGHT 5TH TOE AMPUTATION SITE WITH MILD ERYTHEMA, NO DISCHARGE FROM SURG SITE, ALL TOES ARE COLD TO TOUCH ESPEC LEFT FOOT WITH DECR CAP REFILL, GOOD PT PULSES BILAT, UNABLE TO PALPATE DP PULSE BILAT BUT MOD DOPPLER DP PULSE ON RIGHT AND WEAK DOPPLER DP PULSE ON LEFT) MUSCULOSKELETAL Musculoskeletal: Present ROM normal NEUROLOGICAL Neurological: Present alert, Present oriented x 3, Present no gross motor or sensory deficits PSYCHOLOGICAL Psychological: Present mood/affect normal, Present judgement normal Results Laboratory Result Diagram: 02/21/20 1356 02/21/20 1356 Laboratory Laboratory Tests Test 02/21/20 13:56 White Blood Count 19.00 x10e3/uL (4.8-10.8) Red Blood Count 4.62 x10e6/uL (3.6-5.1) Hemoglobin 13.4 g/dL (12.0-16.0) Hematocrit 43.0 % (34.2-44.1) Mean Corpuscular Volume 93.1 fL (81-99) Mean Corpuscular Hemoglobin 29.0 pg (28-32) Mean Corpuscular Hemoglobin Concent 31.2 g/dL (31-35) Red Cell Distribution Width 15.1 % (11.7-14.4) Platelet Count 361 x10e3/uL (140-360) Neutrophils (%) (Auto) 87.7 % (38.7-80.0) Lymphocytes (%) (Auto) 7.1 % (18.0-39.1) Monocytes (%) (Auto) 3.7 % (4.4-11.3) Eosinophils (%) (Auto) 0.5 % (0.0-6.0) Basophils (%) (Auto) 0.4 % (0.0-1.0) Neutrophils # (Auto) 16.7 (2.1-6.9) Lymphocytes # (Auto) 1.4 (1.0-3.2) Monocytes # (Auto) 0.7 (0.2-0.8) Eosinophils # (Auto) 0.1 (0.0-0.4) Basophils # (Auto) 0.1 (0.0-0.1) Absolute Immature Granulocyte (auto 0.12 x10e3/uL (0-0.1) Prothrombin Time 15.0 seconds (11.9-14.5) Prothromb Time International Ratio 1.12 Activated Partial Thromboplast Time 37.1 seconds (23.8-35.5) Sodium Level 142 mmol/L (136-145) Potassium Level 4.9 mmol/L (3.5-5.1) Chloride Level 103 mmol/L (98-107) Carbon Dioxide Level 25 mmol/L (22-29) Anion Gap 18.9 mmol/L (8-16) Blood Urea Nitrogen 38 mg/dL (7-26) Creatinine 2.22 mg/dL (0.57-1.11) Estimat Glomerular Filtration Rate 22 ML/MIN (60-) BUN/Creatinine Ratio 17 (6-25) Glucose Level 301 mg/dL (74-118) Lactic Acid Level 1.4 mmol/L (0.5-2.0) Calcium Level 9.4 mg/dL (8.4-10.2) Magnesium Level 2.3 MG/DL (1.3-2.1) Total Bilirubin 0.6 mg/dL (0.2-1.2) Aspartate Amino Transf (AST/SGOT) 14 IU/L (5-34) Alanine Aminotransferase (ALT/SGPT) 17 IU/L (0-55) Alkaline Phosphatase 103 IU/L (40-150) Creatine Kinase 55 IU/L (29-168) Creatine Kinase MB 0.90 ng/mL (0-5.0) Troponin I 0.017 ng/mL (0-0.300) Total Protein 7.9 g/dL (6.5-8.1) Albumin 3.2 g/dL (3.5-5.0) Globulin 4.7 g/dL (2.3-3.5) Albumin/Globulin Ratio 0.7 (0.8-2.0) Lab results reviewed: Yes Imaging Imaging results reviewed: Yes Assessment & Plan Medical Decision Making MDM PAIN BILAT FEET L>R - LIKELY PAD BUT RECENT RIGHT SMALL TOE AMPUTATION - CBC, CHEM, BLOOD CX'S, LACTIC, XRAY LEFT FOOT - R/O LEUKOCYTOSIS, OSTEOMYELITIS, CELLULITIS, GANGRENE, RENAL INSUFF Reassessment Reassessment ELEV WBC - WILL GIVE ZOSYN/CLINDA - I DID NOT GIVE VANCO DUE TO GFR OF 22. ADMIT DR BALBUENA (KYE PT) Assessment & Plan Final Impression: (1) Leukocytosis (2) PAD (peripheral artery disease) Depart Disposition: ADMITTED Last Vital Signs Date Time Temp Pulse Resp B/P (MAP) Pulse Ox O2 Delivery O2 Flow Rate FiO2 02/21/20 12:41 98.9 97 18 152/77 100 Room Air Home Meds Reported Medications Loratadine/Pseudoephedrine (CLARITIN-D 24 HOUR TABLET) 1 Each Tab.er.24h, 1 EACH PO DAILY, #30 TAB 01/01/20 Doxycycline Hyclate (DOXYCYCLINE HYCLATE) 100 Mg Capsule, 100 MG PO BID, CAP 01/01/20 Colchicine (COLCRYS) 0.6 Mg Tablet, 0.6 MG PO DAILY, #30 TAB 01/01/20 Atorvastatin Calcium (ATORVASTATIN CALCIUM) 20 Mg Tablet, 20 MG PO HS, #30 TAB 01/01/20 Insulin Aspart (NOVOLOG) 100 Units/1 Ml Inj, 18 UNITS SC TIDWM 05/20/19 Insulin Detemir (LEVEMIR) 100 Unit/1 Ml Vial, 50 UNITS SC HS 05/20/19 Lisinopril (LISINOPRIL) 10 Mg Tablet, 40 MG PO HS, #30 TAB 05/20/19 Amlodipine Besylate (AMLODIPINE BESYLATE) 10 Mg Tablet, 10 MG PO HS, #30 TAB 04/24/16 Carvedilol (CARVEDILOL) 12.5 Mg Tablet, 12.5 MG PO BID, #60 TAB 04/24/16 Clonidine Hcl (CLONIDINE HCL) 0.2 Mg Tablet, 0.2 MG PO BID 04/24/16 Clopidogrel Bisulfate* (PLAVIX) 75 Mg Tablet, 75 MG PO DAILY, #30 TAB 04/24/16 Hydralazine Hcl (HYDRALAZINE HCL) 25 Mg Tab, 50 MG PO QID, TAB 04/24/16 Furosemide (Lasix) 20 Mg Tablet, 20 MG PO BID MAY TAKE AN ADDITIONAL TWO TABLETSTWO TIMES A DAY FOR UP TO FIVE DAYS AT AT TIME IF STILL HAVING SWELLING. 11/11/10 Glimepiride (Amaryl) 4 Mg Tablet, 4 MG PO DAILY 11/11/10 Medications in the ED Acetaminophen/ Hydrocodone Bitart 1 ea NOW PO Last administered on 02/21/20at 1 4:31; Admin Dose 1 EA; Start 02/21/20 at 13:15; Stop 02/28/20 at 14:59 Piperacillin Sod/ Tazobactam Sod 50 ml @ 50 mls/hr NOW ONCE IV Last administered on 02/21/20at 15:46; Admin Dose 50 MLS/HR; Start 02/21/20 at 15:30; Stop 02/21/20 at 16:29 Clindamycin Phosphate 50 ml @ 50 mls/hr NOW ONCE IV ; Start 02/21/20 at 15:30; Stop 02/21/20 at 16:29 Ondansetron HCl 4 mg Q4H PRN IV NAUSEA AND VOMITING; Start 02/21/20 at 16:00; Stop 03/22/20 at 15:59 Morphine Sulfate 4 mg Q4H PRN IV SEVERE PAIN (7-10); Start 02/21/20 at 16:00; Stop 02/28/20 at 15:59 Dextrose 50 ml PRN PRN IV BLOOD SUGAR; Start 02/21/20 at 16:00; Stop 03/22/20 at 15:59 SHARLENE PAULINO MD Feb 21, 2020 16:36
--- NOTE | 2020-02-21 18:04 | Diagnostic Imaging Report ---
EXAM: CT of the site without contrast INDICATION: Bilateral foot pain and swelling. COMPARISON: None available. TECHNIQUE: Multidetector CT scanning of the site was performed. Coronal and sagittal multiplanar reformations were obtained. RADIATION DOSE: Total DLP: 262 mGy*cm Estimated effective dose: (DLP x 0.014 x size factor) mSv CTDIvol has been reviewed. It is below the limits set by the Radiation Protocol Committee (RPC). Dose modulation, iterative reconstruction, and/or weight based adjustment of the mA/kV was utilized to reduce the radiation dose to as low as reasonably achievable. FINDINGS: RIGHT FOOT: The bones are diffusely demineralized. No acute fracture or dislocation. There are moderate to severe degenerative changes of the subtalar, talonavicular, calcaneocuboid and midfoot joints characterized by subchondral sclerosis and subchondral cystic changes and marginal osteophytes. There is a prominent calcaneal spur and enthesopathic changes at the insertion of the Achilles tendon on the calcaneus. There is diffuse soft tissue edema extending into the intrinsic foot muscles. No drainable fluid collection. LEFT FOOT: The bones are diffusely demineralized. No acute fracture or dislocation. There are degenerative changes of the subtalar, talonavicular, calcaneocuboid and midfoot joints characterized by subchondral sclerosis and subchondral cystic changes and marginal osteophytes. These findings are less severe when compared to the contralateral right foot. There is a prominent calcaneal spur and enthesopathic changes at the insertion of the Achilles tendon on the calcaneus. There is diffuse soft tissue edema extending into the intrinsic foot muscles. No drainable fluid collection. IMPRESSION: 1. Diffuse soft tissue swelling of the bilateral foot extending into the intrinsic foot muscles without organized fluid collection. Constellation of findings although nondiagnostic, can be seen with cellulitis. 2. No acute fracture or dislocation of the right foot. Degenerative changes of the subtalar and midfoot joints as detailed above. 3. No acute fracture or dislocation of the left foot. Degenerative changes of the subtalar and midfoot joints to a lesser extent as detailed above. Signed by: Thuan De Guzman MD on 02/21/2020 6:01 PM
--- NOTE | 2020-02-21 18:15 | NUR ---
PATIENT RECEIVED FROM ER PER STRETCHER. ALERT AND VERBALLY RESPONSIVE. SKIN WARM AND DRY TO TOUCH WITH SOME REDNESS AND SWELLING TO BLE, RESPIRATION EVEN AND UNLABORED, ABDOMEN SOFT, LARGE, AND ROUND. TELEMETRY BOX [address] BED IN LOWER POSITION, CALL LIGHT AT REACH.
[2020-02-21 18:21] VITALS: BP 124/67
[2020-02-21 18:27] VITALS: BP 124/67
[2020-02-21 18:31] VITALS: BP 124/67
[2020-02-21] MEDS ORDERED: LACTATED RINGER'S 1,000 ML INJ ONE (19:45)
[2020-02-21 20:00] VITALS: BP 114/52
[2020-02-21] MEDS: VANCOMYCIN 1GM/NS 250 ML 250 ML IV SCH (21:22)
[2020-02-21] MEDS: ATORVASTATIN 20 MG TAB PO SCH (21:22)
[2020-02-21] MEDS: LACTOBACILLUS ACIDOPHILUS CAPSULE PO SCH (21:25)
--- NOTE | 2020-02-21 21:53 | History and Physical ---
CHIEF COMPLAINT: Left foot greater than right foot pain. HISTORY OF PRESENT ILLNESS: This is a 64-year-old morbidly obese woman, also with diabetic foot ulcer, in fact just had a right 5th toe amputation over a month ago, came in with 3 to 4 days of foot pain, continued to get worse, especially with weightbearing as her left foot is worse than the right foot, both on the plantar side and dorsal side. It is an achy pain, not a sharp shooting pain and never had anything like this before. Initially, there was no redness, no injury, no cuts, however, yesterday when the daughter who is at the bedside tried to massage her feet and it became red. Denies fever. There is a decrease in p.o. intake. No chest pain. No shortness of breath. Denies any dysuria. PAST MEDICAL AND SURGICAL HISTORY: 1. Diabetes with foot ulcers. 2. Peripheral vascular disease. 3. Morbid obesity. 4. Coronary artery disease. 5. Hypertension. 6. Dyslipidemia. MEDICATIONS: Please see medication reconciliation form. ALLERGIES: TO BACTRIM AND LATEX. SOCIAL HISTORY: Does not smoke. FAMILY HISTORY: Significant for diabetes. REVIEW OF SYSTEMS: A 10-point review of system obtained and nothing else is significant other than what is stated in HPI. PHYSICAL EXAMINATION: VITAL SIGNS: Temperature 98.5, pulse 77, respiratory rate 20, blood pressure 124/67. GENERAL: No acute distress. SKIN: Some faint redness on her feet. HEENT: Anicteric. Oropharynx is clear. LUNGS: Clear. HEART: Regular rate and rhythm. Normal S1 and S2. GI: Abdomen is soft, nondistended, obese, nontender. NEUROLOGIC: Alert and oriented x3. Cranial nerves II through XII grossly intact. PSYCHIATRIC: No hallucination. MUSCULOSKELETAL: Painless range of motion. LABORATORY DATA: White count 19, hemoglobin 13, and platelet count 361. INR 1.1, PTT 37. BUN 38, creatinine 2.2, sugar 301. Troponin negative. ASSESSMENT AND PLAN: 1. Possibly acute cellulitis of both feet. We will get CT to confirm. I will start her on IV vancomycin. I will monitor her leukocytosis. 2. Acute kidney injury. We gently hydrate her with lactated Ringer. 3. Morbid obesity. 4. Diabetes with hyperglycemia. Use sliding scale for now, potentially we will need to start her on Lantus. 5. Coronary artery disease. We will continue her Plavix. 6. Hypertension, currently stable. We will continue her clonidine to prevent rebound hypertension. 7. Gastrointestinal and deep venous thrombosis prophylaxis, Lovenox. I have updated the daughter at the bedside in details. Yiching MD GREGORY Rosas/DANIA /[id number]
[2020-02-22] VITALS (8 sets, daily range): BP systolic 99–150; BP diastolic 52–75
[2020-02-22 06:44] LABS: BASOPHILS # (AUTO) 0.1 (0.0-0.1); BASOPHILS % 0.4 % (0.0-1.0); EOSINOPHILS # (AUTO) 0.3 (0.0-0.4); HEMATOCRIT 40.1 % (34.2-44.1); HEMOGLOBIN 12.5 g/dL (12.0-16.0); LYMPHOCYTES # (AUTO) 1.8 (1.0-3.2); LYMPHOCYTES % 12.3 % (18.0-39.1); MEAN CORPUSCULAR HEMOGLOBIN 29.3 pg (28-32); MEAN CORPUSCULAR HGB CONC 31.2 g/dL (31-35); MEAN CORPUSCULAR VOLUME 94.1 fL (81-99); MONOCYTES # (AUTO) 0.9 (0.2-0.8); MONOCYTES % 5.9 % (4.4-11.3); NEUTROPHILS # (AUTO) 11.4 (2.1-6.9); NEUTROPHILS % 78.9 % (38.7-80.0); PLATELET COUNT 318 x10e3/uL (140-360); RED BLOOD COUNT 4.26 x10e6/uL (3.6-5.1)
[2020-02-22 07:00] LABS: ALBUMIN 2.9 g/dL (3.5-5.0); ANION GAP 16.3 mmol/L (8-16); CALCIUM 8.7 mg/dL (8.4-10.2); CREATININE, SERUM 1.96 mg/dL (0.57-1.11); POTASSIUM 5.3 mmol/L (3.5-5.1)
[2020-02-22 07:11] LABS: ALBUMIN/GLOBULIN RATIO 0.7 (0.8-2.0)
[2020-02-22] MEDS: INSULIN LISPRO 100 UNIT/1 ML 3ML VIAL SQ SCH ×4 (07:30→21:10)
--- NOTE | 2020-02-22 07:30 | NUR ---
REPORT GIVEN TO [facility] NURSE. ALERT AND RESTING IN BED. NO SIGNS IV INFILTRATION. BED LOCKED AND IN LOW POSITION. CALL LIGHT WITHIN REACH. Addendum: 02/22/20 at 0732 by Jeanne Lock RN PLEASE INCLUDE BED ALARM ACTIVATED
[2020-02-22] MEDS: CLONIDINE HCL 0.2 MG TAB PO SCH ×2 (08:26→16:33)
[2020-02-22] MEDS: CLOPIDOGREL BISULFATE 75 MG TAB PO SCH (08:26)
[2020-02-22] MEDS: LACTOBACILLUS ACIDOPHILUS CAPSULE PO SCH ×2 (08:26→16:34)
[2020-02-22] MEDS: ONDANSETRON HCL INJ 2MG/ML 2ML 2 MG/ML VIAL IV PRN (08:28)
[2020-02-22] MEDS: MORPHINE SULFATE INJ 4 MG/ML INJ 1ML IV PRN (08:29)
[2020-02-22] MEDS ORDERED: SOD POLYSTYRENE SULFONATE SUSP 15 GM/60 ML BTL PO ONE (09:30)
--- NOTE | 2020-02-22 10:20 | NUR ---
Pt. expressed no spiritual or emotional concerns at this time. Timekeeping Supervisor provided hospitality and information on how to reach leather lacer, if needed. No need to follow at this time. CAROLIN DUNBAR Timekeeping Supervisor Spiritual Care Department O: [phone]
[2020-02-22] MEDS: CARVEDILOL 12.5 MG TAB PO SCH ×2 (10:40→16:34)
[2020-02-22] MEDS ORDERED: ACETAMINOPHEN/CODEINE 300MG - 30MG TAB PO PRN (15:15)
[2020-02-22] MEDS ORDERED: ENOXAPARIN SOD INJ 40 MG/0.4 ML SYR SC SCH (17:00)
--- NOTE | 2020-02-22 19:34 | NUR ---
PT RESTING IN BED. PT IN STABLE CONDITION. RESPIRATIONS EVEN AND BREATHING UNLABORED. BEDSIDE SHIFT REPORT GIVEN TO ONCOMING NURSE.
--- NOTE | 2020-02-22 20:29 | NUR ---
NOTIFIED DR BALBUENA ABOUT POSITIVE BLOOD CULTURE. PATIENT IS ON VANCOMYCIN Q24HR AT THIS TIME. NO ORDER RECEIVED.
[2020-02-22] MEDS: ATORVASTATIN 20 MG TAB PO SCH (20:56)
[2020-02-22] MEDS: VANCOMYCIN 1GM/NS 250 ML 250 ML IV SCH (20:56)
--- NOTE | 2020-02-22 22:37 | Progress Note ---
DATE: 02/22/2020 SUBJECTIVE: Still with foot pain. OBJECTIVE: VITAL SIGNS: Temperature 98.0, pulse 73, respiratory rate is 16, blood pressure 123/65. GENERAL: No acute distress. SKIN: No rash. LUNGS: Clear. HEART: Regular rate and rhythm. Normal S1 and S2. GI: Abdomen is soft, nondistended, obese. NEUROLOGIC: Alert and oriented x3. PSYCHIATRIC: No hallucination. LABORATORY DATA: White count 14, hemoglobin 12.5, platelet count 318, potassium 5.3, creatinine 1.96. ASSESSMENT AND PLAN: 1. Acute cellulitis present on admission of both feet. We will continue IV vancomycin. WBC is better today. 2. Acute kidney injury, little better. We will continue to monitor. 3. Mild hyperkalemia. We will give a dose of Kayexalate. 4. Morbid obesity. 5. Diabetes. Her sugars are acceptable at this time. 6. Coronary artery disease and peripheral vascular disease. We will continue Plavix. 7. Hypertension. We will continue her clonidine and her carvedilol. 8. Gastrointestinal and deep venous thrombosis prophylaxis, on Lovenox. Microbiology called. The patient has gram-positive cocci in cluster in her blood culture at this time. We will continue IV vancomycin and check vancomycin trough level. MD GREGORY Garza/DANIA /[id number]
[2020-02-23 00:20] VITALS: BP 143/72
[2020-02-23 05:42] VITALS: BP 128/63
[2020-02-23 06:56] LABS: BASOPHILS # (AUTO) 0.1 (0.0-0.1); BASOPHILS % 0.4 % (0.0-1.0); EOSINOPHILS # (AUTO) 0.5 (0.0-0.4); EOSINOPHILS % 4.4 % (0.0-6.0); HEMATOCRIT 39.6 % (34.2-44.1); HEMOGLOBIN 11.8 g/dL (12.0-16.0); LYMPHOCYTES # (AUTO) 2.3 (1.0-3.2); LYMPHOCYTES % 19.7 % (18.0-39.1); MEAN CORPUSCULAR HEMOGLOBIN 29.8 pg (28-32); MEAN CORPUSCULAR HGB CONC 29.8 g/dL (31-35); MONOCYTES # (AUTO) 0.8 (0.2-0.8); NEUTROPHILS # (AUTO) 7.8 (2.1-6.9); NEUTROPHILS % 68.2 % (38.7-80.0); PLATELET COUNT 259 x10e3/uL (140-360); RED BLOOD COUNT 3.96 x10e6/uL (3.6-5.1); RED CELL DISTRIBUTION WIDTH 15.1 % (11.7-14.4)
[2020-02-23] MEDS: INSULIN LISPRO 100 UNIT/1 ML 3ML VIAL SQ SCH ×2 (07:30→12:54)
--- NOTE | 2020-02-23 07:50 | NUR ---
RECEIVED PT RESTING IN BED. PT IN STABLE CONDITION. TELE APPLIED. NO C/O PAIN VERBALIZED. CALL LIGHT WITHIN REACH. WILL CONTINUE TO MONITOR.
[2020-02-23 08:11] VITALS: BP 138/66
[2020-02-23 08:21] VITALS: BP 138/66
[2020-02-23 08:34] LABS: ANION GAP 16.6 mmol/L (8-16); CALCIUM 8.4 mg/dL (8.4-10.2); CREATININE, SERUM 1.83 mg/dL (0.57-1.11); POTASSIUM 4.6 mmol/L (3.5-5.1)
[2020-02-23] MEDS: CLONIDINE HCL 0.2 MG TAB PO SCH (09:51)
[2020-02-23] MEDS: LACTOBACILLUS ACIDOPHILUS CAPSULE PO SCH (09:51)
[2020-02-23] MEDS: CLOPIDOGREL BISULFATE 75 MG TAB PO SCH (09:51)
[2020-02-23] MEDS: CARVEDILOL 12.5 MG TAB PO SCH (09:52)
[2020-02-23 11:28] VITALS: BP 128/61
[2020-02-23] MEDS ORDERED: ONDANSETRON HCL 4 MG ORAL DISINTEGRATING TAB PO PRN (12:45)
[2020-02-23] MEDS ORDERED: KEFLEX500 MG PO (13:07)
--- NOTE | 2020-02-23 14:43 | NUR ---
PT OFF OF UNIT VIA WHEEL CHAIR TO HOME @ 8725. ACCOMPANIED BY TECH. PT IN STABLE CONDITION. RESPIRATIONS EVEN AND BREATHING UNLABORED. IV REMOVED WITH TIP INTACT. TELE REMOVED. DISCHARGE PAPERWORK COMPLETED WITH PATIENT AND QUESTIONS ANSWERED. ALL BELONGINGS WITH PATIENT.
--- NOTE | 2020-02-23 22:48 | Discharge Summary ---
FINAL DIAGNOSIS: Acute cellulitis of both feet. SECONDARY DIAGNOSES: 1. Morbid obesity. 2. Acute kidney injury, resolving. 3. Diabetes. 4. Coronary artery disease. 5. Peripheral vascular disease with previous right 5th toe amputation. 6. Hypertension. CONSULTANTS: None. PROCEDURES/STUDIES PERFORMED: CT of the lower extremities. HISTORY: Per dictated H and P. HOSPITAL COURSE: The patient was admitted. IV vancomycin renally adjusted. Dosage was given. Her white blood cell count continued to improve. Her pain is better now with some IV fluid. Her acute kidney injury is slowly resolving. At this time, we can switch her IV antibiotics to oral Keflex renally adjusted. The patient was continued on her Plavix for both of her coronary artery disease and peripheral vascular disease. The patient will follow up with her primary care doctor in one week. I have updated her son at the bedside in details as well. The patient was seen and examined today. It took 32 minutes total to discharge this patient. CONDITION ON DISCHARGE: Improved. DISCHARGE MEDICATIONS: Please see medication reconciliation form. MD GREGORY Garza/DANIA /[id number]
== END 2020-02-23 14:17 | disposition home or self-care (01) | DRG 603 ==
LOC: ER 12:36 → ERHOLD 16:01 → MED/SURG3 17:55
PROVIDERS: ADMIT Internal Medicine; ATTEND Internal Medicine
DX: L03.115 Cellulitis of right lower limb (principal); N17.9 Acute kidney failure, unspecified; Z68.42 Body mass index [BMI] 45.0-49.9, adult; L03.116 Cellulitis of left lower limb; E11.51 Type 2 diabetes mellitus with diabetic peripheral angiopathy without gangrene; Z79.899 Other long term (current) drug therapy; Z89.421 Acquired absence of other right toe(s); E87.5 Hyperkalemia; E66.01 Morbid (severe) obesity due to excess calories; I25.10 Atherosclerotic heart disease of native coronary artery without angina pectoris; Z20.828 Contact with and (suspected) exposure to other viral communicable diseases; E11.65 Type 2 diabetes mellitus with hyperglycemia; E78.5 Hyperlipidemia, unspecified
CPT/HCPCS: 36415; 80048; 80053; 82550; 82553; 82948; 83605; 83735; 84484; 85025; 85610; 85730; 87040; 87071; 87205; 99284; J1650; J2270; J2405; J2543; J3370; J7121; U0002

== ENCOUNTER 2021-10-19 14:51 | Emergency (ER) | payer BC ==
[~2021-10-19] VITALS: Ht 162.6 cm; Wt 127.0 kg
[~2021-10-19 14:51] MED LIST changes: +KEFLEX500 MG PO
[2021-10-19 16:48] LABS: BASOPHILS # (AUTO) 0.1 (0.0-0.1); BASOPHILS % 0.4 % (0.0-1.0); EOSINOPHILS # (AUTO) 0.3 (0.0-0.4); EOSINOPHILS % 2.3 % (0.0-6.0); HEMATOCRIT 37.3 % (34.2-44.1); HEMOGLOBIN 12.1 g/dL (12.0-16.0); LYMPHOCYTES # (AUTO) 1.8 (1.0-3.2); LYMPHOCYTES % 15.2 % (18.0-39.1); MEAN CORPUSCULAR HEMOGLOBIN 30.9 pg (28-32); MEAN CORPUSCULAR HGB CONC 32.4 g/dL (31-35); MEAN CORPUSCULAR VOLUME 95.4 fL (81-99); MONOCYTES # (AUTO) 0.6 (0.2-0.8); MONOCYTES % 5.1 % (4.4-11.3); NEUTROPHILS # (AUTO) 8.8 (2.1-6.9); NEUTROPHILS % 76.6 % (38.7-80.0); PLATELET COUNT 387 x10e3/uL (140-360); RED BLOOD COUNT 3.91 x10e6/uL (3.6-5.1); RED CELL DISTRIBUTION WIDTH 15.5 % (11.7-14.4)
[2021-10-19] MEDS ORDERED: Vancomycin IV 1 GM in SODIUM CHLORIDE 0.9% 250ML 250 ML IV SCH (17:00)
[2021-10-19 17:07] LABS: CALCIUM 8.7 mg/dL (8.4-10.2); CREATININE, SERUM 2.38 mg/dL (0.57-1.11)
[2021-10-19] MEDS ORDERED: SODIUM CHLORIDE 0.9% 1000ML 1,000 ML IV ONE (18:00)
[2021-10-19 18:48] VITALS: BP 147/70
== END 2021-10-19 18:49 | disposition home or self-care (01) ==
LOC: ER 15:00
DX: L03.115 Cellulitis of right lower limb (principal); N17.9 Acute kidney failure, unspecified; E11.65 Type 2 diabetes mellitus with hyperglycemia; I10 Essential (primary) hypertension; M10.9 Gout, unspecified; Z20.822 Contact with and (suspected) exposure to COVID-19
CPT/HCPCS: 0223U; 36415; 80048; 85025; 99283; J0692; J3370; J7030; J7050